=== PATIENT | male | born 1935 | race Hispanic/Latino ===

== ENCOUNTER 2017-10-08 17:14 | Emergency (ER) | payer MEDICARE, BC ==
[2017-10-08 17:42] VITALS: O2SAT 95
--- NOTE | 2017-10-08 19:07 | ED PDOC ---
HPI: SOB/CHF/COPD Time Seen by Provider: 10/08/17 19:06 Chief Complaint (Nursing): Shortness Of Breath Chief Complaint (Provider): ABD PAIN/H/O SOB History Per: Patient (82 Y/O MALE H/O DYSPNEA WITH EXERTION ONGOING HERE FOR EVALUATION OF LEFT LOWER ABDOMINAL PAIN NOTED TODAY IMPROVED WITH BM. PATIENT DENIES ANY FEVER/CHILLS/DIARRHEA/CONSTIPATION. HAS NO H/O ABD SURGERIES. HAS H/ O CAD/ADMITS CIGAR SMOKING. PATIENT WAS SENT BY [facility] FOR EVALUATION OF ABD PAIN.) Past Medical History Reviewed: Historical Data, Nursing Documentation, Vital Signs Vital Signs: Last Vital Signs Temp 98.4 F 10/08/17 22:27 Pulse 84 10/08/17 22:27 Resp 18 10/08/17 22:27 BP 124/84 10/08/17 22:27 Pulse Ox 95 10/08/17 22:27 - Medical History PMH: Arthritis (ARTHRITIS BOTH KNEES), Diabetes, HTN, Hypercholesterolemia, Hyperlipidemia, TIA (x 3 times) Denies: HIV, Chronic Kidney Disease - Surgical History Surgical History: CABG - Family History Family History: States: Unknown Family Hx - Immunization History Hx Tetanus Toxoid Vaccination: Yes Hx Influenza Vaccination: Yes Hx Pneumococcal Vaccination: Yes - Home Medications Home Medications: Ambulatory Orders Medication Instructions Recorded Aspirin [Ecotrin] 81 mg PO DAILY #0 tabec 12/29/15 Clopidogrel [Plavix] 75 mg PO DAILY #0 tab 12/29/15 Ezetimibe [Zetia] 10 mg PO QPM #0 tab 12/29/15 Fenofibrate [Tricor] 145 mg PO DAILY #0 tab 12/29/15 Furosemide [Lasix] 20 mg PO DAILY #0 tab 12/29/15 Insulin NPH Hum/Reg Insulin Hm 55 unit SC BID #0 vial 12/29/15 [Novolin 70-30 100 Unit/ml Vial] Metoprolol Succinate [Toprol XL] 50 mg PO DAILY #0 tab 12/29/15 Clune-3 Acid Ethyl Esters [Lovaza] 1 gm PO TID #0 capsule 12/29/15 Simvastatin [Zocor] 40 mg PO QPM #0 tablet 12/29/15 Sitagliptin Phosphate [Januvia] 50 mg PO QPM #0 tablet 12/29/15 - Allergies Allergies/Adverse Reactions: Allergies Allergy/AdvReac Type Severity Reaction Status Date / Time No Known Allergies Allergy Verified 10/08/17 17:38 Review of Systems ROS Statement: Except As Marked, All Systems Reviewed And Found Negative Respiratory: Positive for: Shortness of Breath Gastrointestinal: Positive for: Abdominal Pain Physical Exam - Reviewed Nursing Documentation Reviewed: Yes Vital Signs Reviewed: Yes - Physical Exam Appears: Positive for: Well, Non-toxic, No Acute Distress Head Exam: Positive for: ATRAUMATIC, NORMAL INSPECTION, NORMOCEPHALIC Skin: Positive for: Normal Color, Warm, DRY Eye Exam: Positive for: EOMI, Normal appearance, PERRL ENT: Positive for: Normal ENT Inspection Neck: Positive for: Normal, Painless ROM Cardiovascular/Chest: Positive for: Regular Rate, Rhythm Respiratory: Positive for: CNT, Normal Breath Sounds Gastrointestinal/Abdominal: Positive for: Normal Exam, Soft Back: Positive for: Normal Inspection Extremity: Positive for: Normal ROM Neurologic/Psych: Positive for: Alert, Oriented - Laboratory Results Result Diagrams: 10/08/17 19:15 10/08/17 19:15 - ECG O2 Sat by Pulse Oximetry: 95 - Progress ED Course And Treament: d/w Dr. Chung States patient has chronic dyspnea with exertion and was more concerned of abdominal pain noted in office. He would like CT abd/pelvis to r/o diverticulitis. Disposition - Clinical Impression Clinical Impression: Abdominal pain, Hydronephrosis of left kidney, Gallstones - Patient ED Disposition Is Patient to be Admitted: Transfer of Care - Disposition Disposition Time: 20:00 Condition: IMPROVED Instructions: Gallstones, Hydronephrosis in Adults, Acute Abdomen (Belly Pain) , Adult (DC) Forms: [email or web address] ([place]) Patient Signed Over To: Aylin Becker Handoff Comments: pending bloodwork/CT abd/pelvis/re-evaluation
[2017-10-08 19:24] LABS: BASO # 0.1 K/uL (0.0-0.2); BASO % 0.8 % (0.0-2.0); EOS # 0.2 K/uL (0.0-0.7); EOS % 2.4 % (0.0-4.0); LYMPH # 1.1 K/uL (1.0-4.3); LYMPH % 11.1 % (20.0-40.0); MEAN CELL VOLUME 82.2 fl (80.0-94.0); MEAN CORPUSCULAR HEMOGLOBIN 27.1 pg (27.0-31.0); MEAN PLATELET VOLUME 8.9 fl (7.2-11.7); MONO # 0.9 K/uL (0.0-0.8); MONO % 9.1 % (0.0-10.0); NEUT # 7.5 K/uL (1.8-7.0); NEUT % 76.6 % (50.0-75.0); RBC 5.16 Mil/uL (4.40-5.90); RED CELL DISTRIBUTION WIDTH 13.6 % (11.5-14.5); WHITE BLOOD COUNT 9.8 K/uL (4.8-10.8)
[2017-10-08 19:38] LABS: ALB/GLOB RATIO 1.2 (1.0-2.1); ALBUMIN 4.2 g/dL (3.5-5.0); CALCIUM 10.1 mg/dL (8.4-10.2)
[2017-10-08 19:46] LABS: TROPONIN I 0.014 ng/mL (0.00-0.120)
[2017-10-08 21:28] LABS: SQUAMOUS EPITHIAL < 1 /hpf (0-5); URINE BILIRUBIN NEGATIVE (NEGATIVE); URINE BLOOD NEGATIVE (NEGATIVE); URINE CLARITY CLEAR (Clear); URINE COLOR YELLOW (YELLOW); URINE GLUCOSE (UA) 150 mg/dL (Normal); URINE LEUKOCYTE ESTERASE NEG Leu/uL (Negative); URINE PROTEIN NEGATIVE (NEGATIVE); URINE UROBILINOGEN 0.2-1.0 mg/dL (0.2-1.0)
--- NOTE | 2017-10-08 21:56 | ED PDOC ---
- Laboratory Results Result Diagrams: 10/08/17 19:15 10/08/17 19:15 - ECG O2 Sat by Pulse Oximetry: 95 - Progress ED Course And Treament: Case endorsed to typewriter assembler from [facility] pending labs, CT EXAM: CT Abdomen and Pelvis Without Intravenous Contrast CLINICAL HISTORY: 82 years old, male; Pain; Abdominal pain; Localized; Left lower quadrant (llq); Additional info: Llq pain. Sent phy. Doc. TECHNIQUE: Axial computed tomography images of the abdomen and pelvis without intravenous contrast. All CT scans at this facility use one or more dose reduction techniques, viz.: automated exposure control; ma/kV adjustment per patient size (including targeted exams where dose is matched to indication; i.e. head); or iterative reconstruction technique. Coronal and sagittal reformatted images were created and reviewed. COMPARISON: No relevant prior studies available. FINDINGS: Lung bases: Linear atelectasis or fibrosis in the lung bases. Small scar in the right middle lobe. ABDOMEN: Liver: Fatty infiltration of the liver. Gallbladder and bile ducts: Multiple small stones in the gallbladder and proximal common bile duct. Gallbladder is decompressed. Pancreas: Unremarkable. No ductal dilation. Spleen: Unremarkable. No splenomegaly. Adrenals: Unremarkable. No mass. Kidneys and ureters: There is severe hydronephrosis of the left kidney which appears chronic and may be due to a UPJ stenosis. No stones within either kidney or ureter. No hydronephrosis on the right. Stomach and bowel: Unremarkable. No obstruction. No mucosal thickening. Appendix: No findings to suggest acute appendicitis. PELVIS: Bladder: Mild bladder trabeculation suggests chronic outlet obstruction. No stones. Reproductive: Prostate gland is mildly prominent size. ABDOMEN and PELVIS: Intraperitoneal space: Unremarkable. No free air. No significant fluid collection. Bones/joints: No acute fracture. No dislocation. Soft tissues: Bilateral inguinal hernias containing fat. Vasculature: Unremarkable. No abdominal aortic aneurysm. Lymph nodes: Unremarkable. No enlarged lymph nodes. IMPRESSION: 1. Multiple small stones in the gallbladder and proximal common bile duct. Gallbladder is decompressed. 2. There is severe hydronephrosis of the left kidney which appears chronic and may be due to a UPJ stenosis. Correlation with history would be helpful. 3. Mild bladder trabeculation suggests chronic outlet obstruction. The prostate gland is mildly prominent in size. On re-eval, patient resting comfortably. Patient states no pain currently. Patient states he has had a left kidney problem "since he was a kid". Denies urinary symptoms. Denies RUQ pain. Case discussed with Dr. Chung, agrees with plan to discharge and follow up in office. Patient educated on findings. Return precautions given. Disposition - Clinical Impression Clinical Impression: Abdominal pain, Hydronephrosis of left kidney, Gallstones - POA Present On Arrival: None - Disposition Disposition: Routine/Home Disposition Time: 21:58 Condition: IMPROVED Instructions: Gallstones, Hydronephrosis in Adults, Acute Abdomen (Belly Pain) , Adult (DC) Forms: [facility] ([place])
[2017-10-08 22:28] VITALS: BP 124/84; PULSE 84; RESP 18; TEMP 98.4
--- NOTE | 2017-10-09 09:00 | RAD ---
PROCEDURE: CHEST RADIOGRAPH, 1 VIEW HISTORY: SOB COMPARISON: 12/28/2015 FINDINGS: LUNGS: Clear. PLEURA: No pneumothorax or pleural fluid seen. CARDIOVASCULAR: Status post CABG. Normal heart size. No congestive change. OSSEOUS STRUCTURES: No significant abnormalities. VISUALIZED UPPER ABDOMEN: Normal. OTHER FINDINGS: None. IMPRESSION: No active disease.
--- NOTE | 2017-10-09 11:11 | CT ---
PROCEDURE: CT Abdomen and Pelvis without intravenous contrast HISTORY: LLQ PAIN COMPARISON: None. TECHNIQUE: Without contrast.. Contrast Dose: 0 Radiation dose: Total exam DLP = Total exam DLP = 828.26 mGy-cm. This CT exam was performed using one or more of the following dose reduction techniques: Automated exposure control, adjustment of the mA and/or kV according to patient size, and/or use of iterative reconstruction technique. FINDINGS: LOWER THORAX: Linear scar/ atelectasis right lower lobe. LIVER: Hepatomegaly. Diffuse diminished attenuation, mildly heterogeneous, consistent with fatty infiltration. No mass. Smooth contour. No biliary ductal dilatation. GALLBLADDER AND BILE DUCTS: Cholelithiasis. Partially contracted gallbladder. No mural thickening or pericholecystic fluid. There is a calculus seen in the cystic duct. PANCREAS: Unremarkable. No gross lesion or ductal dilatation. SPLEEN: Unremarkable. ADRENALS: Unremarkable. No mass. KIDNEYS AND URETERS: Severe left hydronephrosis with cortical thinning. Dilated left renal pelvis. No hydroureter. No renal mass or calculus. Differential diagnosis includes benign stricture right UPJ versus neoplasm. No right hydronephrosis. No renal calculus. VASCULATURE: Unremarkable. No aortic aneurysm. BOWEL: Mild sigmoid diverticulosis. No evidence of diverticulitis. No bowel obstruction air APPENDIX: Unremarkable. Normal appendix. PERITONEUM: Unremarkable. No free fluid. No free air. LYMPH NODES: Unremarkable. No enlarged lymph nodes. BLADDER: Unremarkable. REPRODUCTIVE: Mild prostate enlargement. BONES: No acute fracture. OTHER FINDINGS: None. IMPRESSION: Hepatomegaly. Fatty infiltration of the liver. Severe left hydronephrosis with obstruction at the level of the ureteropelvic junction. Benign stricture versus neoplasm. Cholelithiasis with calculus in cystic duct but no evidence of cholecystitis.
== END 2017-10-08 22:28 | disposition home or self-care (01) ==
LOC: H.ER 17:14
DX: R10.32 Left lower quadrant pain (principal); K80.20 Calculus of gallbladder without cholecystitis without obstruction; E11.9 Type 2 diabetes mellitus without complications; E78.00 Pure hypercholesterolemia, unspecified; I10 Essential (primary) hypertension; J44.9 Chronic obstructive pulmonary disease, unspecified; N13.30 Unspecified hydronephrosis; Z79.4 Long term (current) use of insulin; Z86.73 Personal history of transient ischemic attack (TIA), and cerebral infarction without residual deficits; Z95.1 Presence of aortocoronary bypass graft; Z79.82 Long term (current) use of aspirin